=== PATIENT | female | born 1955 | race African-American/Black ===

== ENCOUNTER 2017-01-16 12:36 | Emergency (ER) | payer OTHER ==
[2017-01-16] MEDS ORDERED: Acetaminophen 500 MG TAB ONE (13:02)
[2017-01-16] MEDS ORDERED: traMADol HCl 50 MG TAB ONE (13:02)
[2017-01-16] MEDS ORDERED: Ibuprofen 800 MG TAB ONE (13:02)
--- NOTE | 2017-01-16 13:30 | RAD ---
RIGHT FOOT THREE VIEWS HISTORY: Pain in the right foot when walking. FINDINGS: No fracture, dislocation, or bony destruction is identified. POS: [facility]
== END 2017-01-16 13:40 | disposition home or self-care (01) ==
LOC: MADERS 12:36
DX: S90.31XA Contusion of right foot, initial encounter (principal); X58.XXXA Exposure to other specified factors, initial encounter